=== PATIENT | male | born 1990 | race Caucasian/White ===

== ENCOUNTER 2019-02-19 21:51 | Emergency (ER) | payer BC ==
[~2019-02-19] VITALS: Ht 166.4 cm; Wt 91.7 kg
[2019-02-19 22:04] VITALS: BP 119/78; PULSE 67; RESP 18; Ht 166.4 cm; Wt 91.7 kg
[2019-02-19] MEDS ORDERED: IBUPROFEN 800 MG TAB PO ONE (23:00)
[2019-02-19] MEDS ORDERED: NAPR-985 PO (23:58)
--- NOTE | 2019-02-20 04:48 | ERD ---
ER Documentation Chief Complaint Chief Complaint R shoulder pain from ice hockey injury an hr ago HPI 29-year-old male otherwise healthy presents to the emergency department complaining of right shoulder pain after injury which occurred 2 hours prior to arrival. Patient states he was playing ice hockey when he fell onto his right shoulder accidentally. He reports 1/10Pain at rest but significant pain when moving the shoulder. He took no medication for relief of symptoms. He denies any other symptoms or injuries at this time. He denies head injury or loss of consciousness. ROS All systems reviewed and are negative except as per history of present illness. Medications Home Meds Active Scripts Naproxen* (Naprosyn*) 500 Mg Tablet, 500 MG PO BID PRN for PAIN AND/OR INFLAMMATION, #30 TAB Prov:BRITTANEY WAGNER PA-C 02/19/19 Allergies Allergies: Coded Allergies: Sulfa (Sulfonamide Antibiotics) (Verified Allergy, Unknown, 05/10/15) PMhx/Soc History of Surgery: Yes (foot Sx 4 years ago.) Anesthesia Reaction: No Hx Neurological Disorder: No Hx Respiratory Disorders: No Hx Cardiac Disorders: No Hx Psychiatric Problems: No Hx Miscellaneous Medical Probl: No Hx Alcohol Use: No Hx Substance Use: No Hx Tobacco Use: No FmHx Family History: No diabetes Physical Exam Vitals Vital Signs Date Temp Pulse Resp B/P (MAP) Pulse Ox O2 O2 Flow FiO2 Time Delivery Rate 02/19/19 99.0 67 18 119/78 100 22:04 (92) Physical Exam Const: No acute distress Head: Atraumatic Eyes: Normal Conjunctiva ENT: Normal External Ears, Nose and Mouth. Neck: Full range of motion. No meningismus. Resp: No respiratory distress. Skin: No petechiae or rashes Ext: Mild tenderness palpation of the right anterior shoulder. Limited range of motion of the right shoulder secondary to pain. The patient is ne urovascularly intact the right upper extremity. Neur: Awake and alert Psych: Normal Mood and Affect Results 24 hrs Current Medications Medications Dose Sig/Bridget Start Time Status Last (Trade) Ordered Route PRN Stop Time Admin Dose Reason Admin Ibuprofen 800 mg ONCE ONCE 02/19/19 DC (Motrin) PO 23:00 02/19/19 23:01 Procedures/MDM 29-year-old male presents to the emergency department complaining of right shoulder injury after fall. X-rays were negative for sign of fracture per radiology. Patient's pain was controlled in the department with ibuprofen. Patient was stable and appropriate for discharge and further follow-up with orthopedic physician as an outpatient. There is no evidence to suggest ligamental or tendon injury, compartment syndrome, fracture, or other emergencies. Patient was in agreement with the diagnosis, plan, need for follow-up, return precautions. He was advised to return here immediately for any new or worsening or concerning symptoms. Departure Diagnosis: Primary Impression: Contusion of right shoulder Condition: Fair Patient Instructions: Shoulder Contusion Referrals: [facility] YOU HAVE RECEIVED A MEDICAL SCREENING EXAM AND THE RESULTS INDICATE THAT YOU DO NOT HAVE A CONDITION THAT REQUIRES URGENT TREATMENT IN THE EMERGENCY DEPARTMENT. FURTHER EVALUATION AND TREATMENT OF YOUR CONDITION CAN WAIT UNTIL YOU ARE SEEN IN YOUR DOCTORS OFFICE WITHIN THE NEXT 1-2 DAYS. IT IS YOUR RESPONSIBILITY TO MAKE AN APPOINTMENT FOR FOLOW-UP CARE. IF YOU HAVE A PRIMARY DOCTOR --you should call your primary doctor and schedule an appointment IF YOU DO NOT HAVE A PRIMARY DOCTOR YOU CAN CALL OUR PHYSICIAN REFERRAL HOTLINE AT IF YOU CAN NOT AFFORD TO SEE A PHYSICIAN YOU CAN CHOSE FROM THE FOLLOWING [facility] [address]. [facility] [address] [facility] [place] [address] [facility] [facility] [address] [facility] [facility] [address] [facility]. [facility]. [address] [facility]. [facility] Urgent Care 7 a.m.- 11 p.m. Every Day of the Week NO APPOINTMENT OR AUTHORIZATION NEEDED SO [facility] Hours: Mon-Fri 9:00 AM - 5:00 PM Additional Instructions: SPECIALIST: YOU HAVE A MEDICAL CONDITION WHICH REQUIRES YOU TO SEE A SPECIALIST WITHIN THE NEXT 1-2 DAYS. PLEASE FOLLOW UP WITH YOUR PRIMARY PHYSICIAN FOR REFFERAL.IF YOU DO NOT HAVE A PRIMARY CARE PHYSICIAN AND/OR YOU CAN NOT AFFORD TO SEE A PHYSICIAN THE FOLLOWING RESOURCES HAVE BEEN SUPPLIED TO YOU. IT IS YOUR RESPONSIBILITY TO BE SEEN BY THE SPECIALIST: ORTHOPEDICS BRITTANEY WAGNER PA-C Feb 20, 2019 04:48
== END 2019-02-20 00:06 | disposition home or self-care (01) ==
LOC: FTE 21:51
DX: S40.011A Contusion of right shoulder, initial encounter (principal); W18.39XA Other fall on same level, initial encounter; Y92.9 Unspecified place or not applicable